=== PATIENT | male | born 1975 | race Caucasian/White ===

== ENCOUNTER 2017-12-21 23:58 | Emergency (ER) | payer SELFPAY ==
[~2017-12-21] VITALS: Wt 77.1 kg
[~2017-12-21 23:58] MED LIST: BACTRIM DS 8001 TA1 PO; CLINDAMYCIN HC300 MG PO; HYDROCODONE BIT1 T11 PO; KEFLEX500 MG PO; OMEPRAZOLE40 MG PO
[2017-12-22 00:43] LABS: HEMATOCRIT 41.8 % (42.0-52.0); HEMOGLOBIN 14.4 g/dl (14.0-18.0); MEAN CELL VOLUME 90.7 fl (80.0-94.0); MEAN CORPUSCULAR HGB 31.2 pg (27.0-31.0); MEAN CORPUSCULAR HGB CONC 34.4 g/dl (33.0-37.0); MEAN PLATELET VOLUME 9.6 fl (9.6-12.3); PLATELET COUNT AUTOMATED 213 10*3/uL (130-400); RED BLOOD COUNT 4.61 10*6/uL (4.50-5.90); RED CELL DISTRI WIDTH 12.6 % (0-14.5); WHITE BLOOD COUNT 14.5 10*3/uL (4.8-10.8)
[2017-12-22 01:05] LABS: PLATELET SUFFICIENCY NORMAL (NORMAL); TOTAL CELLS COUNTED 100 #CELLS
[2017-12-22 01:16] LABS: ACT PARTIAL THROMBO TIME 21.3 SECONDS (20.8-31.5); INTERNATIONAL NORM RATIO 0.9 (2.0-3.5)
[2017-12-22 01:20] LABS: ALBUMIN 3.8 gm/dl (3.1-4.5); ALKALINE PHOSPHATASE 69 U/L (45-117); BUN 15 mg/dl (7-24); CHLORIDE 101 mmol/L (98-107); CREATININE 0.98 mg/dL (0.70-1.30); LIPASE 187 U/L (73-393); POTASSIUM 3.6 mmol/L (3.5-5.1); SGOT/AST 28 IU/L (3-35); SGPT/ALT 27 U/L (12-78); SODIUM 139 mmol/L (136-145); TOTAL PROTEIN 6.6 gm/dL (6.4-8.2)
[2017-12-22] MEDS ORDERED: Motrin,Rufen800 MG PO (02:20)
== END 2017-12-22 02:23 | disposition home or self-care (01) ==
LOC: ED 23:58
PROVIDERS: Emergency Medicine Emergency Medical Services
DX: S01.01XA Laceration without foreign body of scalp, initial encounter (principal); F10.10 Alcohol abuse, uncomplicated; F10.129 Alcohol abuse with intoxication, unspecified; Z79.899 Other long term (current) drug therapy; V86.5 Driver of special all-terrain or other off-road motor vehicle injured in nontraffic accident; Y93.89 Activity, other specified; Y92.89 Other specified places as the place of occurrence of the external cause; Y99.8 Other external cause status

== ENCOUNTER 2018-05-09 11:47 | Emergency (ER) | payer BC, OTHER ==
[~2018-05-09] VITALS: Ht 167.6 cm; Wt 81.6 kg
[~2018-05-09 11:47] MED LIST changes: +Motrin,Rufen800 MG PO
[2018-05-09] MEDS ORDERED: VIBRAMYCIN100 MG PO (12:18)
== END 2018-05-09 12:28 | disposition home or self-care (01) ==
LOC: ED 11:47
PROVIDERS: Nurse Practitioner Family
DX: S70.361A Insect bite (nonvenomous), right thigh, initial encounter (principal); Z79.899 Other long term (current) drug therapy; Z88.1 Allergy status to other antibiotic agents; W57.XXXA Bitten or stung by nonvenomous insect and other nonvenomous arthropods, initial encounter; Y93.89 Activity, other specified; Y92.89 Other specified places as the place of occurrence of the external cause; Y99.9 Unspecified external cause status

== ENCOUNTER → 2021-12-20 | Outpatient (CLI) | payer BC ==
[~2021-12-20] MED LIST changes: +VIBRAMYCIN100 MG PO
== END | disposition home or self-care (01) ==
LOC: RAD 12:28
PROVIDERS: ATTEND Nurse Practitioner Family
DX: M50.30 Other cervical disc degeneration, unspecified cervical region (principal); M48.02 Spinal stenosis, cervical region; M25.78 Osteophyte, vertebrae; M89.38 Hypertrophy of bone, other site; M25.512 Pain in left shoulder